=== PATIENT | female | born 1990 | race Caucasian/White ===

== ENCOUNTER 2018-05-05 17:19 | Emergency (ER) | payer SELFPAY ==
[~2018-05-05] VITALS: Ht 167.6 cm; Wt 79.4 kg
== END 2018-05-05 17:45 | disposition home or self-care (01) ==
LOC: ED 17:19
DX: M79.605 Pain in left leg (principal)

== ENCOUNTER 2020-02-18 20:00 | Emergency (ER) | payer OTHER ==
[~2020-02-18] VITALS: Ht 165.1 cm; Wt 65.8 kg
[2020-02-18] MEDS ORDERED: FLAGYL500 MG PO (22:32)
--- NOTE | 2020-02-19 19:07 | EKG ---
[facility] [address] [facility] [place] [address] Signed Normal sinus rhythm with sinus arrhythmia Normal ECG No previous ECGs available Confirmed by RAY MOODY MD [id number] on 02/19/2020 7:07:35 PM Electronically Signed By: RAY MOODY MD 02/19/20 1907 PATIENT NAME: DELANO BURGESS WILLA Electrocardiogram DATE OF : 89 PHYSICIAN: RAY MOODY MD REPORT #: [id number] REPORT IS CONFIDENTIAL AND NOT TO BE RELEASED WITHOUT AUTHORIZATION
== END 2020-02-18 23:32 | disposition home or self-care (01) ==
LOC: ED 20:00
DX: R55 Syncope and collapse (principal); N76.0 Acute vaginitis
CPT/HCPCS: 80053; 81001; 84703; 85025; 87210; 87491; 87591; 93005; 93010; 99284-25; J7030